=== PATIENT | male | born 1950 | race Caucasian/White ===

== ENCOUNTER → 2018-09-09 14:01 | Outpatient (CLI) | payer MEDICARE, OTHER, SELFPAY ==
--- NOTE | 2018-09-09 | DI.CT.S_ITS ---
PROCEDURE: CT ABDOMEN PELVIS WO/W CON INDICATIONS: Asymptomatic microscopic hematuria TECHNIQUE: Optional 5 mm thick noncontrast images acquired from the diaphragm to the symphysis pubis. After the administration of intravenous contrast, 5 mm thick images acquired from the diaphragm to the symphysis pubis after a 10-minute delay. 2 mm thick coronal and sagittal reformats were then performed of the kidneys and ureters. For radiation dose reduction, the following was used: automated exposure control, adjustment of mA and/or kV according to patient size. COMPARISON: None. FINDINGS: Image quality: Excellent. Lung bases: Lung bases are clear. Heart size is normal. Urinary system: Both kidneys are normal in size, without hydronephrosis or nephrolithiasis on pre-contrast images. No perinephric fat stranding. There is normal bilateral renal enhancement. Renal calyces appear normal in morphology when filled with contrast. Opacified portions of both ureters demonstrate normal caliber. Bladder wall thickness is normal. No calcified bladder stones. Other solid organs: Liver is normal in size and enhancement. Gallbladder appears normal. Biliary system is non dilated. Pancreas enhances normally. Spleen is normal in size and enhancement. No adrenal nodules. Peritoneum and bowel: Bowel loops demonstrate normal wall thickness and caliber. No free fluid or air. Nodes and vessels: No retroperitoneal or mesenteric adenopathy by size criteria. Aorta and inferior vena cava are normal in size. Abdominal wall: No ventral hernias. Pelvis: No pathologic free pelvic fluid. No inguinal hernias or adenopathy. Note is made of a 1.3 cm narrow neck right posterolateral bladder diverticulum showing no inflammation or associated mass. Bones: No suspicious bony lesions. No vertebral body compression fractures. IMPRESSION: No source of hematuria is not found. No hydronephrosis or nephrolithiasis is seen. There is no sign of urothelial or renal cortical mass. Note is made of a small right posterolateral bladder diverticulum measuring only 1.3 cm in maximal dimension, without associated inflammation or internal debris, or mass. Dictated by: Igor Booth M.D. on 09/09/2018 at 17:19 Approved by: Igor Booth M.D. on 09/09/2018 at 17:21
== END ==
PROVIDERS: PCP Family Medicine; Visit Provider Physician Assistant
DX: R31.21 Asymptomatic microscopic hematuria (principal); N32.3 Diverticulum of bladder
CPT/HCPCS: 74178

== ENCOUNTER 2019-08-17 11:02 | Emergency (ER) | payer MEDICARE, OTHER, SELFPAY ==
[2019-08-17] VITALS (16 sets, daily range): BP systolic 100–134; BP diastolic 52–61; PULSE 57–70; RESP 16–18; TEMP 36.4; O2SAT 96–100; BMI 38.7
--- NOTE | 2019-08-17 11:32 | ED.NAVMDI ---
HPI - Nausea/Vomiting/Diarrhea <Sarita Hyman PA-C - Last Filed: 08/17/19 20:12> General Chief complaint: Nausea/Vomiting/Diarrhea Stated complaint: nausea/vomiting hernia x7 days Time Seen by Provider: 08/17/19 11:05 Source: patient and family Mode of arrival: Ambulatory Limitations: no limitations History of Present Illness HPI Narrative: This is a 60-year-old gentleman with a history of DM type 2, CVA w/residual left-sided deficit, ureteroplasty 3 months ago, 4 cardiac stents, total knee arthroplasty, hypertension, hypothyroid who presents to the emergency department with his [place] [facility] who was concerned about the patient's recent nausea, vomiting and a possible hernia. The patient states that he has been having intermittent nausea for the past few weeks, he says it seems to happen at random but he also notes that he feels nauseous before eating even with the smell of food. He had 2 episodes of vomiting last night and in general has been eating less the last few days to weeks because of his nausea, he did not eat breakfast this morning but he did have a 3 bites of a BLT last night, and a 1/2 a cup f grits yesterday for breakfast. He says he thinks he has been experiencing reflux more recently and notes he has had this previously at times, he has taken tums for this a few times with limited relief. He states he also has been having intermittent back pain for over a month that is mid-low back, to the right of his spine, he describes it as sudden intense 10/10 pain that feels like it's going to takes me to my knees and then gradually resolves and happens multiple times per day; he states he has seen a chiropractor for this multiple times as well as his PCP. He also notes I'm past my expiration date so I have been more short of breath the last few months when I'm moving around. He says that he had a normal bowel movement this morning. He says he has had no recent changes to his medications. He notes that he has ?an abdominal hernia? that they were concerned about today when he was seen at the doctor's office. He says that he has had this for about 10 years and it started out small but it has ?been getting bigger he notes it is not painful and it is only present when he sits up and uses his abdominal muscles, saying ?I used to be small but now it looks like there is a giant alien in the middle of my belly. He states this has changed gradually, and has not suddenly worsened of late. Three weeks ago he had some intermittent diarrhea but this has resolved after about 5 days, other members of the [facility] had similar symptoms. Today he denies chest pain, back pain, abdominal pain, flank pain, fever, chills, diarrhea, dysuria, constipation or any other symptoms. MD complaint: nausea and vomiting Onset (ago): week(s) (nausea for 2 weeks, 2 episodes of vomiting last manuel) Description of Diarrhea: none Associated Abdominal Pain: Yes Location of pain: right flank Severity: mild Severity scale (1-10): 1 (a 10/10 when it's bad) Quality: sharp Pain Consistency: intermittent and now resolved Relieving factors: rest Exacerbating factors: none Associated symptoms: loss of appetite, nausea/vomiting and shortness of breath (with exertion for last few months) Related Data Home Medications Medication Instructions Recorded Confirmed ACETAMINOPHEN/DIPHENHYDRAMINE 1 cap PO PRN PRN #0 11/02/12 (Tylenol Pm Ex-Strength Gelcap) Fluoxetine Hydrochloride 20 mg PO QDAY #0 cap 11/02/12 (FLUOXETINE) atorvastatin [Lipitor] 80 mg PO HS #0 tab 11/02/12 insulin glargine [Lantus U-100 55 unit SQ HS #0 11/02/12 Insulin] metformin [Glucophage] 1,000 mg PO BIDCC #0 tab 11/02/12 carvedilol [Coreg] 25 mg PO BID #0 10/30/15 tamsulosin [Flomax] 0.4 mg PO QDAY #0 10/30/15 multivitamin [Multiple Vitamins] 1 tab PO QDAY #0 tab 11/08/15 Previous Rx's Medication Instructions Recorded aspirin 81 mg PO BID #60 tab 11/10/15 hydroxyzine pamoate [Vistaril] 25 mg PO Q4HP PRN #60 cap 11/10/15 oxycodone 5 mg PO Q4HP PRN #90 tab 11/10/15 omeprazole 20 mg PO DAILY #20 cap 08/17/19 ondansetron HCl [Zofran] 4 mg PO Q8H #20 tab 08/17/19 sulfamethoxazole-trimethoprim 1 tab PO BID #14 tab 08/17/19 [Bactrim DS] Allergies Allergy/AdvReac Type Severity Reaction Status Date / Time Penicillins [PENICILLINS] Allergy Unknown HYPERSENSITIVITY Verified 08/17/19 12:14 A CHILD/UNKNOWN Review of Systems <Sarita Hyman PA-C - Last Filed: 08/17/19 20:12> Review of Systems Narrative: GENERAL: Denies chills, fatigue, malaise, fever, sweats. HEENT: Denies sinus pain, ear pain, sore throat, difficulty swallowing, dizziness. RESPIRATORY: positive for exertional dyspnea over the last few months, negative for cough, wheezing, hemoptysis, sputum. CARDIOVASCULAR: Denies chest pain, palpitations, orthopnea, edema, GASTROINTESTINAL: Positive for 2 weeks of nausea, 2 episodes of vomiting last night, intermittent sharp abdominal (flank) pain, denies diarrhea, constipation, melena. : Denies dysuria, frequency, incontinence, hematuria, urinary retention, it has definitley been different since my ureteroplasty, but nothing has changed recently. MUSCULOSKELETAL: Positive for abdominal wall weakness hernia that is getting bigger in middle of belly denies weakness, joint pain, or bony pain SKIN: Denies rash, skin lesions, or other NEUROLOGIC: Denies weakness, headache, numbness, change in speech, confusion, seizures, incoordination. PSYCHIATRIC: No concerning psychosocial issues. 12 point review of systems is negative except for those stated above Patient History <Sarita Hyman PA-C - Last Filed: 08/17/19 20:12> Social History Smoking Status: Former smoker (quit 15 yrs ago) Smoking Status: Former smoker (quit 15 yrs ago) alcohol intake frequency: a few times a week Alcohol type: beer Substance Use Type: does not use Exam <Sarita Hyman PA-C - Last Filed: 08/17/19 20:12> Narrative Exam Narrative: GENERAL: well appearing 68 year old patient appears stated age. Well-nourished, obese patient, in mild distress. HEAD: Atraumatic. Normocephalic. EYES: Pupils equal round and reactive. Extraocular motions intact. No scleral icterus. No injection or drainage. ENT: Nose without bleeding, purulent drainage. Throat without erythema, tonsillar hypertrophy or exudate. Airway patent. NECK: Trachea midline. Non tender CARDIOVASCULAR: Distant heart tones, Regular rate and rhythm without murmurs, gallops, or rubs. RESPIRATORY: Clear to auscultation. Breath sounds equal bilaterally. No wheezes, rales, or rhonchi. GASTROINTESTINAL: Abdomen soft, protruberant, there is mild epigastric and RUQ tenderness, McBurney's point is nontender, Rovsing sign is negative, Mora sign is negative, there is a large rectus diastasis with flexion of the abdominal muscles, no abdominal hernia palpable, Abdomen nondistended. EXTREMITIES: No edema or joint tenderness, pedal pulses are bilaterally weak, difficult to palpate. BACK: Nontender midline and paraspinal without deformity or crepitance. There is flank tenderness on the right. NEURO: AOx3. SKIN: No rash or erythema of visible areas Initial Vital Signs Initial Vital Signs: Vital Signs Pulse Rate 70 08/17/19 11:24 Pulse Oximetry 97 08/17/19 11:24 <Griselda Benites DO - Last Filed: 08/22/19 07:12> Initial Vital Signs Initial Vital Signs: Vital Signs Pulse Rate 70 08/17/19 11:24 Pulse Oximetry 97 08/17/19 11:24 Scores <Sarita Hyman PA-C - Last Filed: 08/17/19 20:12> GCS [place] coma scale eye opening: Spontaneous [place] coma scale verbal response: Orientated [place] coma scale motor response: Obey commands [place] coma scale total score: 15 HEART Score Heart Score history: Slightly Suspicious Heart Score EKG: Normal Heart Score Age: > or = 65 years old Heart Score risk factors: 1-2 risk factors Heart Score troponin: < or = to normal limit Heart Score Total: 3 Course <Sarita Hyman PA-C - Last Filed: 08/17/19 20:12> Orders Ordered: Discontinued Medications Sodium Chloride (Normal Saline 0.9%) 1,000 mls @ 1,000 mls/hr IV BOLUS ONE Stop: 08/17/19 12:28 Last Infusion: 08/17/19 14:28 Dose: 0 mls/hr Documented by: Infusion: 08/17/19 13:14 Dose: 1,000 mls/hr Documented by: Admin: 08/17/19 11:37 Dose: 500 mls/hr Documented by: AMINATA Ondansetron HCl (Zofran) 4 mg IV NOW ONE Stop: 08/17/19 11:30 Last Admin: 08/17/19 11:37 Dose: 4 mg Documented by: AMINATA Vital Signs Vital signs: Vital Signs - 8 hr 08/17/19 12:30 08/17/19 13:00 08/17/19 13:14 Pulse Rate 61 59 L 58 L Respiratory Rate Blood Pressure 106/52 L Pulse Oximetry 98 99 99 08/17/19 13:20 08/17/19 13:22 08/17/19 13:30 Pulse Rate 59 L 63 Respiratory Rate 16 Blood Pressure 100/54 L Pulse Oximetry 96 98 08/17/19 13:40 08/17/19 14:00 08/17/19 14:21 Pulse Rate 58 L 57 L Respiratory Rate Blood Pressure 116/54 L 131/60 124/57 L Pulse Oximetry 100 99 08/17/19 14:30 08/17/19 14:40 Pulse Rate 57 L 60 Respiratory Rate Blood Pressure 122/58 L Pulse Oximetry 99 100 <Griselda Benites, - Last Filed: 08/22/19 07:12> Orders Ordered: Discontinued Medications Sodium Chloride (Normal Saline 0.9%) 1,000 mls @ 1,000 mls/hr IV BOLUS ONE Stop: 08/17/19 12:28 Last Infusion: 08/17/19 14:28 Dose: 0 mls/hr Documented by: Infusion: 08/17/19 13:14 Dose: 1,000 mls/hr Documented by: Admin: 08/17/19 11:37 Dose: 500 mls/hr Documented by: AMINATA Ondansetron HCl (Zofran) 4 mg IV NOW ONE Stop: 08/17/19 11:30 Last Admin: 08/17/19 11:37 Dose: 4 mg Documented by: AMINATA Vital Signs Vital signs: Vital Signs - 8 hr 08/17/19 12:30 08/17/19 13:00 08/17/19 13:14 Pulse Rate 61 59 L 58 L Respiratory Rate Blood Pressure 106/52 L Pulse Oximetry 98 99 99 08/17/19 13:20 08/17/19 13:22 08/17/19 13:30 Pulse Rate 59 L 63 Respiratory Rate 16 Blood Pressure 100/54 L Pulse Oximetry 96 98 08/17/19 13:40 08/17/19 14:00 08/17/19 14:21 Pulse Rate 58 L 57 L Respiratory Rate Blood Pressure 116/54 L 131/60 124/57 L Pulse Oximetry 100 99 08/17/19 14:30 08/17/19 14:40 Pulse Rate 57 L 60 Respiratory Rate Blood Pressure 122/58 L Pulse Oximetry 99 100 MDM - Nausea/Vomiting/Diarrhea <Sarita Hyman PA-C - Last Filed: 08/17/19 20:12> Differential Diagnosis Differential diagnosis: Likely gastroenteritis, dehydration and other (UTI, GERD, gastric ulcer, duodenal ulcer, biliary colic/dyskinesia, cholecystitis, ureterolithiasis, AAA, dka) Medical Records Attestation: I reviewed the patient's medical records. Medical records narrative: limited records available for review, reviewed records from for patient's ureteroplasty procedure. Lab Data Attestation: I reviewed the patient's lab results. Result diagrams: 08/17/19 11:23 08/17/19 11:23 Labs: Lab Results 08/17/19 08/17/19 08/17/19 Range/Units 11:23 11:23 11:23 WBC 5.6 (4.5-11.0) X10^3/uL RBC 3.68 L (4.5-5.9) X10^6/uL Hgb 11.9 L (13.5-17.5) g/dL Hct 34.3 L (41-53) % MCV 93.3 (80-100) fL MCH 32.2 (26-34) PG MCHC 34.6 (30-36) % RDW 12.6 (11.6-14.8) % Plt Count 227 (150-400) X10^3/uL Neut % (Auto) 65.3 (50-75) % Lymph % (Auto) 22.0 L (25-40) % [place] % (Auto) 10.2 (3-14) % Eos % (Auto) 1.4 L (2-4) % Baso % (Auto) 1.1 (0-2) % Neut # (Auto) 3600 (4171-7887) /uL Lymph # (Auto) 1200 (4901-2346) /uL [place] # (Auto) 600 (0-900) /uL Eos # (Auto) 100 (0-450) /uL Baso # (Auto) 100 (0-100) /uL Sodium 134 L (137-145) mmol/L Potassium 5.0 (3.4-5.1) mmol/L Chloride 100 (98-107) mmol/L Carbon Dioxide 24 (22-32) mmol/L BUN 31 H (9-20) mg/dL Creatinine 1.70 H (0.66-1.25) mg/dL Estimated GFR 40.3 L (>60) mL/min BUN/Creatinine Ratio 18.2 (6-22) Glucose 126 H (80-110) mg/dL Lactate (0.7-2.1) mmol/L Calcium 10.8 H (8.4-10.2) mg/dL Total Bilirubin 0.8 (0.2-1.3) mg/dL AST 30 (17-59) IU/L ALT 25 (<50) IU/L Alkaline Phosphatase 76 (38-126) U/L Troponin I < 0.012 (0.01-0.034) ng/mL NT-Pro-B Natriuret Pep 112 (<125) pg/mL Total Protein 7.0 (6.3-8.2) g/dL Albumin 4.3 (3.5-5.0) g/dL Globulin 2.7 (1.7-4.1) g/dL Albumin/Globulin Ratio 1.6 (1.0-2.8) Lipase 137 (23-300) U/L Urine RBC (0-5/HPF) Urine WBC (0-5/HPF) Ur Squamous Epith Cells (0-5/HPF) Amorphous Sediment Urine Bacteria (None) Hyaline Casts (None) Ur Culture Indicated? 08/17/19 08/17/19 08/17/19 Range/Units 11:23 12:45 13:48 WBC (4.5-11.0) X10^3/uL RBC (4.5-5.9) X10^6/uL Hgb (13.5-17.5) g/dL Hct (41-53) % MCV (80-100) fL MCH (26-34) PG MCHC (30-36) % RDW (11.6-14.8) % Plt Count (150-400) X10^3/uL Neut % (Auto) (50-75) % Lymph % (Auto) (25-40) % [place] % (Auto) (3-14) % Eos % (Auto) (2-4) % Baso % (Auto) (0-2) % Neut # (Auto) (7482-5756) /uL Lymph # (Auto) (8033-3109) /uL [place] # (Auto) (0-900) /uL Eos # (Auto) (0-450) /uL Baso # (Auto) (0-100) /uL Sodium (137-145) mmol/L Potassium (3.4-5.1) mmol/L Chloride (98-107) mmol/L Carbon Dioxide (22-32) mmol/L BUN (9-20) mg/dL Creatinine (0.66-1.25) mg/dL Estimated GFR (>60) mL/min BUN/Creatinine Ratio (6-22) Glucose (80-110) mg/dL Lactate 2.5 H 1.0 (0.7-2.1) mmol/L Calcium (8.4-10.2) mg/dL Total Bilirubin (0.2-1.3) mg/dL AST (17-59) IU/L ALT (<50) IU/L Alkaline Phosphatase (38-126) U/L Troponin I (0.01-0.034) ng/mL NT-Pro-B Natriuret Pep (<125) pg/mL Total Protein (6.3-8.2) g/dL Albumin (3.5-5.0) g/dL Globulin (1.7-4.1) g/dL Albumin/Globulin Ratio (1.0-2.8) Lipase (23-300) U/L Urine RBC 0-1/hpf (0-5/HPF) Urine WBC >100/hpf H (0-5/HPF) Ur Squamous Epith Cells 1-5 /hpf (0-5/HPF) Amorphous Sediment 1+ Urine Bacteria Many (>30) H (None) Hyaline Casts 5-10/lpf (None) Ur Culture Indicated? Specimen cultured Urine Dip Bedside Urine Glucose Negative Bedside Urine Bilirubin + 1 Bedside Urine Ketone +/- 5 Urine Specific [place] 1.020 Bedside Urine Occult Blood - Negative Bedside Urine pH 6.0 Bedside Urine Protein +/- 15 Bedside Urine Urobilinogen - Negative Bedside Urine Nitrite + Positive Bedside Urine Leukocytes +++ [address] scan - abdomen/pelvis: Attestation: I personally reviewed and interpreted this imaging study as follows: Radiologist's Impression: [address] [address] [address] Scan Report Signed Patient: Harsh Sprague LMR#: [id number] : [id number]:[id number] Age/Sex: 68 / MDate of Service: 08/17/19 Loc: ED Accession Number: [id number] Procedure: CT abdomen pelvis w con Ordering Provider: Sarita Hyman P.A-C PROCEDURE: CT ABDOMEN PELVIS W CON INDICATIONS: flank pain, N/V/anorexia TECHNIQUE: After the administration of intravenous contrast, 5 mm thick sections acquired from the diaphragm to the symphysis. 5 mm coronal and sagittal reformats were acquired. For radiation dose reduction, the following was used: automated exposure control, adjustment of mA and/or kV according to patient size. COMPARISON: [facility], CT, CT ABDOMEN PELVIS WO/W CON, 09/09/2018, 15:15. FINDINGS: Image quality: Excellent. ABDOMEN: Lung bases: Lung bases are clear. Heart size is normal. Solid organs: Liver is normal in size and enhancement. Gallbladder appears normal. Biliary system is non dilated. Pancreas enhances normally. Spleen is normal in size and enhancement. No adrenal nodules. Kidneys demonstrate normal size and enhancement, without hydronephrosis. Peritoneum and bowel: Bowel loops demonstrate normal wall thickness and caliber. No free fluid or air. Nodes and vessels: No retroperitoneal or mesenteric adenopathy by size criteria. Aorta and inferior vena cava are normal in size. Miscellaneous: No ventral hernias. PELVIS: Genitourinary: Bladder wall thickness is normal. The again noted is a small diverticulum just anterior to the distal right ureteral insertion on the bladder wall. This diverticulum does not impinge on the distal ureter itself. It appears mildly more prominent in size than on the comparison study from 09/09/18 measuring up to 1.1 x 1.7 cm. Miscellaneous: No inguinal hernias or adenopathy. There is a mid pelvis ovoid peripherally faintly calcified presumed lymph nodes that is unchanged from 09/09/18 currently seen on series 3 image 72 and previously seen on series 3 image 190. Bones: No suspicious bony lesions. No vertebral body compression fractures. IMPRESSION: A normal or abnormal appendix could not be located. No CT evidence of diverticulitis is found. Source of current right lower quadrant pain is not identified. A right posterolateral bladder wall small diverticulum has slightly enlarged in size now measuring up to 1.1 x 1.7 cm and does not impinge on the course of the distal right ureter. No inflammation is associated. Dictated by: Igor Booth M.D. on 08/17/2019 at 12:54 Approved by: Igor Booth M.D. on 08/17/2019 at 13:00 ECG Data Attestation: I personally reviewed and interpreted this ECG as follows: Prior ECG tracings: not available for review Interpretation: Sinus rhythm, rate of 65, CO interval 154 QRS 133 QT 401, P axis 55 R axis 43 T axis 48, right bundle-branch MDM Narrative Medical decision making narrative: This is a 68-year-old gentleman with a history of multiple cardiac stents, CVA with mild left-sided deficit, DM type 2, ureteroplasty, hypertension, hypothyroid presents complaining of 2 weeks of nausea, 2 episodes of vomiting last night, reduced appetite for 2 weeks and ongoing intermittent severe right flank pain, as well as concern for a possible abdominal hernia. 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 After a fluid bolus the lactate dropped significantly, and patient was discharged with outpatient antibiotics for a urinary tract infection/possible pyelo, advised to follow-up with his urologist. He is also provided a prescription for omeprazole and Zofran and referral to GI and advised to follow-up with his primary care physician. I suspect his symptoms are multifactorial, some of them related to his chronic reflux and GERD, possible gastric ulcer, and some of them related to his urinary tract infection. <Griselad Benites, DO - Last Filed: 08/22/19 07:12> Lab Data Labs: Lab Results 08/17/19 08/17/19 08/17/19 Range/Units 11:23 11:23 11:23 WBC 5.6 (4.5-11.0) X10^3/uL RBC 3.68 L (4.5-5.9) X10^6/uL Hgb 11.9 L (13.5-17.5) g/dL Hct 34.3 L (41-53) % MCV 93.3 (80-100) fL MCH 32.2 (26-34) PG MCHC 34.6 (30-36) % RDW 12.6 (11.6-14.8) % Plt Count 227 (150-400) X10^3/uL Neut % (Auto) 65.3 (50-75) % Lymph % (Auto) 22.0 L (25-40) % [place] % (Auto) 10.2 (3-14) % Eos % (Auto) 1.4 L (2-4) % Baso % (Auto) 1.1 (0-2) % Neut # (Auto) 3600 (5581-6808) /uL Lymph # (Auto) 1200 (9772-3278) /uL [place] # (Auto) 600 (0-900) /uL Eos # (Auto) 100 (0-450) /uL Baso # (Auto) 100 (0-100) /uL Sodium 134 L (137-145) mmol/L Potassium 5.0 (3.4-5.1) mmol/L Chloride 100 (98-107) mmol/L Carbon Dioxide 24 (22-32) mmol/L BUN 31 H (9-20) mg/dL Creatinine 1.70 H (0.66-1.25) mg/dL Estimated GFR 40.3 L (>60) mL/min BUN/Creatinine Ratio 18.2 (6-22) Glucose 126 H (80-110) mg/dL Lactate (0.7-2.1) mmol/L Calcium 10.8 H (8.4-10.2) mg/dL Total Bilirubin 0.8 (0.2-1.3) mg/dL AST 30 (17-59) IU/L ALT 25 (<50) IU/L Alkaline Phosphatase 76 (38-126) U/L Troponin I < 0.012 (0.01-0.034) ng/mL NT-Pro-B Natriuret Pep 112 (<125) pg/mL Total Protein 7.0 (6.3-8.2) g/dL Albumin 4.3 (3.5-5.0) g/dL Globulin 2.7 (1.7-4.1) g/dL Albumin/Globulin Ratio 1.6 (1.0-2.8) Lipase 137 (23-300) U/L Urine RBC (0-5/HPF) Urine WBC (0-5/HPF) Ur Squamous Epith Cells (0-5/HPF) Amorphous Sediment Urine Bacteria (None) Hyaline Casts (None) Ur Culture Indicated? 08/17/19 08/17/19 08/17/19 Range/Units 11:23 12:45 13:48 WBC (4.5-11.0) X10^3/uL RBC (4.5-5.9) X10^6/uL Hgb (13.5-17.5) g/dL Hct (41-53) % MCV (80-100) fL MCH (26-34) PG MCHC (30-36) % RDW (11.6-14.8) % Plt Count (150-400) X10^3/uL Neut % (Auto) (50-75) % Lymph % (Auto) (25-40) % [place] % (Auto) (3-14) % Eos % (Auto) (2-4) % Baso % (Auto) (0-2) % Neut # (Auto) (6872-5685) /uL Lymph # (Auto) (6081-7752) /uL [place] # (Auto) (0-900) /uL Eos # (Auto) (0-450) /uL Baso # (Auto) (0-100) /uL Sodium (137-145) mmol/L Potassium (3.4-5.1) mmol/L Chloride (98-107) mmol/L Carbon Dioxide (22-32) mmol/L BUN (9-20) mg/dL Creatinine (0.66-1.25) mg/dL Estimated GFR (>60) mL/min BUN/Creatinine Ratio (6-22) Glucose (80-110) mg/dL Lactate 2.5 H 1.0 (0.7-2.1) mmol/L Calcium (8.4-10.2) mg/dL Total Bilirubin (0.2-1.3) mg/dL AST (17-59) IU/L ALT (<50) IU/L Alkaline Phosphatase (38-126) U/L Troponin I (0.01-0.034) ng/mL NT-Pro-B Natriuret Pep (<125) pg/mL Total Protein (6.3-8.2) g/dL Albumin (3.5-5.0) g/dL Globulin (1.7-4.1) g/dL Albumin/Globulin Ratio (1.0-2.8) Lipase (23-300) U/L Urine RBC 0-1/hpf (0-5/HPF) Urine WBC >100/hpf H (0-5/HPF) Ur Squamous Epith Cells 1-5 /hpf (0-5/HPF) Amorphous Sediment 1+ Urine Bacteria Many (>30) H (None) Hyaline Casts 5-10/lpf (None) Ur Culture Indicated? Specimen cultured Urine Dip Bedside Urine Glucose Negative Bedside Urine Bilirubin + 1 Bedside Urine Ketone +/- 5 Urine Specific [place] 1.020 Bedside Urine Occult Blood - Negative Bedside Urine pH 6.0 Bedside Urine Protein +/- 15 Bedside Urine Urobilinogen - Negative Bedside Urine Nitrite + Positive Bedside Urine Leukocytes +++ 500 Esterase Discharge Plan Departure Patient Disposition: Home Clinical Impression: Bacterial UTI, Chronic flank pain, Chronic GERD Discharge Date/Time: 08/17/19 15:09 Activity Restrictions/Additional Instructions: Thank you for letting his be part of your care in the emergency department today. There is no evidence of an emergent or life threatening illness at this time, but follow up with your doctor in 1-2 days is recommended nonetheless to continue to rule out serious underlying causes of your symptoms. Please call the office for an appointment. Please return to the Emergency Department for any worsening or persistent symptoms. Please take medications as directed. You have evidence of a pretty significant urinary tract infection, please take the antibiotics prescribed (Bactrim) for this and pay close attention to your symptoms. If you do develop fever, chills, nausea, vomiting, blood in your urine increasing pain or any other symptoms of concern to you please do not hesitate to seek medical care. I also have referred you to a golf starter and ranger, and I am providing you with Zofran and omeprazole Zofran is an antinausea medicine and omeprazole as a medicine for acid and reflux. Please take these as prescribed and follow-up with your primary care physician in the next 2-5 days. I also recommend that you contact your urologist and advised them of your urinary tract infection and ensure that you have a follow-up appointment with them soon. Prescriptions: New omeprazole 20 mg capsule,delayed release(DR/EC) 20 mg PO DAILY Qty: 20 RF: 0 ondansetron HCl [Zofran] 4 mg tablet 4 mg PO Q8H Qty: 20 RF: 0 sulfamethoxazole-trimethoprim [Bactrim DS] 800-160 mg tablet 1 tab PO BID Qty: 14 RF: 0 No Action insulin glargine [Lantus U-100 Insulin] 100 UNIT/1 ML solution 55 unit SQ HS Qty: 0 RF: 0 atorvastatin [Lipitor] 40 MG tablet 80 mg PO HS Qty: 0 RF: 0 Fluoxetine Hydrochloride (FLUOXETINE) 20 mg PO QDAY Qty: 0 RF: 0 ACETAMINOPHEN/DIPHENHYDRAMINE (Tylenol Pm Ex-Strength Gelcap) 1 cap PO PRN PRNQty: 0 RF: 0 metformin [Glucophage] 500 MG tablet 1,000 mg PO BIDCC Qty: 0 RF: 0 carvedilol [Coreg] 25 MG tablet 25 mg PO BID Qty: 0 RF: 0 tamsulosin [Flomax] 0.4 MG capsule,extended release 24hr 0.4 mg PO QDAY Qty: 0 RF: 0 multivitamin [Multiple Vitamins] 1 EACH tablet 1 tab PO QDAY Qty: 0 RF: 0 aspirin 81 MG tablet,delayed release (DR/EC) 81 mg PO BID Qty: 60 RF: 1 oxycodone 5 MG tablet 5 mg PO Q4HP PRNQty: 90 RF: 0 hydroxyzine pamoate [Vistaril] 25 MG capsule 25 mg PO Q4HP PRNQty: 60 RF: 1 Referrals: Luther Cid MD [Non-Staff] - Jackeline Pacheco DO [Primary Care Provider] - <Griselda Benites DO - Last Filed: 08/22/19 07:12> Cosign ED Attending Darylature Attestation: I was immediately available in the department for consultation. Documentation has been reviewed. I agree with assessment and plan.
[2019-08-17] MEDS: ONDANSETRON 4 MG/2 ML INJ IV (11:37)
[2019-08-17] MEDS: SODIUM CHLORIDE 0.9% 1,000 ML 500 ML IV (11:37)
[2019-08-17 11:38] LABS: Add Manual Diff / Slide Review NO; Basophils Absolute Auto 100 /uL (0-100); Basophils Percent Auto 1.1 % (0-2); Eosinophils Absolute Auto 100 /uL (0-450); Eosinophils Percent Auto 1.4 % (2-4); Hematocrit 34.3 % (41-53); Hemoglobin 11.9 g/dL (13.5-17.5); Lymphocytes Absolute Auto 1200 /uL (1100-4500); Mean Corpuscular HGB Conc 34.6 % (30-36); Mean Corpuscular Hemoglobin 32.2 PG (26-34); Mean Corpuscular Volume 93.3 fL (80-100); Monocytes Absolute Auto 600 /uL (0-900); Monocytes Percent Auto 10.2 % (3-14); Neutrophils Absolute Auto 3600 /uL (1500-7000); Neutrophils Percent Auto 65.3 % (50-75); Platelet Count 227 X10^3/uL (150-400); Red Blood Cell Count 3.68 X10^6/uL (4.5-5.9); Red Cell Distribution Width 12.6 % (11.6-14.8); White Blood Cell Count 5.6 X10^3/uL (4.5-11.0)
[2019-08-17 11:46] LABS: Alanine Aminotransferase 25 IU/L (<50); Albumin 4.3 g/dL (3.5-5.0); Albumin Globulin Ratio 1.6 (1.0-2.8); Alkaline Phosphatase 76 U/L (38-126); Aspartate Aminotransferase 30 IU/L (17-59); BUN Creatinine Ratio 18.2 (6-22); Bilirubin Total 0.8 mg/dL (0.2-1.3); Blood Urea Nitrogen 31 mg/dL (9-20); Calcium 10.8 mg/dL (8.4-10.2); Carbon Dioxide 24 mmol/L (22-32); Chloride 100 mmol/L (98-107); Estimated Glomerular Filt Rate 40.3 mL/min (>60); Globulin 2.7 g/dL (1.7-4.1); Glucose 126 mg/dL (80-110); HEMOLYSIS < 15 (0-50); Lipase 137 U/L (23-300); Sodium 134 mmol/L (137-145)
[2019-08-17 11:47] LABS: Lactate (Lactic Acid) 2.5 mmol/L (0.7-2.1)
[2019-08-17 11:55] LABS: NT-proBNP (BNP-Adult 18+) 112 pg/mL (<125)
[2019-08-17 11:58] LABS: Troponin I < 0.012 ng/mL (0.01-0.034)
--- NOTE | 2019-08-17 11:58 | DI.CT.S_ITS ---
PROCEDURE: CT ABDOMEN PELVIS W CON INDICATIONS: flank pain, N/V/anorexia TECHNIQUE: After the administration of intravenous contrast, 5 mm thick sections acquired from the diaphragm to the symphysis. 5 mm coronal and sagittal reformats were acquired. For radiation dose reduction, the following was used: automated exposure control, adjustment of mA and/or kV according to patient size. COMPARISON: [facility], CT, CT ABDOMEN PELVIS WO/W CON, 09/09/2018, 15:15. FINDINGS: Image quality: Excellent. ABDOMEN: Lung bases: Lung bases are clear. Heart size is normal. Solid organs: Liver is normal in size and enhancement. Gallbladder appears normal. Biliary system is non dilated. Pancreas enhances normally. Spleen is normal in size and enhancement. No adrenal nodules. Kidneys demonstrate normal size and enhancement, without hydronephrosis. Peritoneum and bowel: Bowel loops demonstrate normal wall thickness and caliber. No free fluid or air. Nodes and vessels: No retroperitoneal or mesenteric adenopathy by size criteria. Aorta and inferior vena cava are normal in size. Miscellaneous: No ventral hernias. PELVIS: Genitourinary: Bladder wall thickness is normal. The again noted is a small diverticulum just anterior to the distal right ureteral insertion on the bladder wall. This diverticulum does not impinge on the distal ureter itself. It appears mildly more prominent in size than on the comparison study from 09/09/18 measuring up to 1.1 x 1.7 cm. Miscellaneous: No inguinal hernias or adenopathy. There is a mid pelvis ovoid peripherally faintly calcified presumed lymph nodes that is unchanged from 09/09/18 currently seen on series 3 image 72 and previously seen on series 3 image 190. Bones: No suspicious bony lesions. No vertebral body compression fractures. IMPRESSION: A normal or abnormal appendix could not be located. No CT evidence of diverticulitis is found. Source of current right lower quadrant pain is not identified. A right posterolateral bladder wall small diverticulum has slightly enlarged in size now measuring up to 1.1 x 1.7 cm and does not impinge on the course of the distal right ureter. No inflammation is associated. Dictated by: Igor Booth M.D. on 08/17/2019 at 12:54 Approved by: Igor Booth M.D. on 08/17/2019 at 13:00
[2019-08-17 13:18] LABS: RBC Urine 0-1/HPF (0-5/HPF); Squamous Epithelial Cell Urine 1-5 /HPF (0-5/HPF); WBC Urine >100/HPF (0-5/HPF)
[2019-08-17 13:19] LABS: Amorphous Sediment Urine 1+; Bacteria Urine Many (>30); Culture Indicated Urine Specimen Cultured; Hyaline Casts Urine 5-10/LPF
[2019-08-17 13:35] LABS: Reflexed Lactate in 2 Hours Y
== END 2019-08-17 15:09 | disposition home or self-care (01) ==
PROVIDERS: Emergency Provider Student in an Organized Health Care Education/Training Program; PCP Family Medicine
DX: N39.0 Urinary tract infection, site not specified (principal); R10.9 Unspecified abdominal pain; K21.9 Gastro-esophageal reflux disease without esophagitis; E11.9 Type 2 diabetes mellitus without complications; Z96.659 Presence of unspecified artificial knee joint; Z95.5 Presence of coronary angioplasty implant and graft; R11.2 Nausea with vomiting, unspecified; R19.7 Diarrhea, unspecified
CPT/HCPCS: 36415; 74177; 80053; 81003; 81015; 83605; 83690; 83880; 84484; 85025; 87077; 87086; 87186; 93005; 93010; 96361; 96374; 99284; J2405

== ENCOUNTER 2020-06-27 18:28 | Emergency (ER) | payer MEDICARE, OTHER, SELFPAY ==
[2020-06-27] VITALS (8 sets, daily range): BP systolic 116–161; BP diastolic 58–74; PULSE 67–74; RESP 12–25; TEMP 36.5; O2SAT 96–99; BMI 39.4
--- NOTE | 2020-06-27 18:35 | ED_ITS ---
HPI - General Adult General Chief complaint: Fall Stated complaint: GLF and Right rib pain Time Seen by Provider: 06/27/20 18:35 History of Present Illness HPI narrative: 69-year-old gentleman with a history of hyperlipidemia, coronary artery disease, diabetes prior strokes with gait instability presents after falling. The fall was unwitnessed and when medics were initially called to the scene he was described as having a GCS level of 12 with significant confusion. Over the course of transport to the emergency room he is improved and by the time of arrival in the emergency department has a GCS of 15 with some retrograde amnesia appreciated. Has complaints of right lower rib pain but can not give any additional history regarding the events surrounding his fall. He is quite gregarious, not answering direct questions and suspected to be moderately intoxicated. Related Data Home Medications Medication Instructions Recorded Confirmed ACETAMINOPHEN/DIPHENHYDRAMINE 1 cap PO PRN PRN #0 11/02/12 (Tylenol Pm Ex-Strength Gelcap) Fluoxetine Hydrochloride 20 mg PO QDAY #0 cap 11/02/12 06/27/20 (FLUOXETINE) atorvastatin [Lipitor] 80 mg PO HS #0 tab 11/02/12 06/27/20 insulin glargine [Lantus U-100 55 unit SQ HS #0 11/02/12 Insulin] metformin [Glucophage] 1,000 mg PO BIDCC #0 tab 11/02/12 carvedilol [Coreg] 25 mg PO BID #0 10/30/15 06/27/20 tamsulosin [Flomax] 0.4 mg PO QDAY #0 10/30/15 06/27/20 multivitamin [Multiple Vitamins] 1 tab PO QDAY #0 tab 11/08/15 empagliflozin [Jardiance] 10 mg PO QAM 06/27/20 06/27/20 levothyroxine [Synthroid] 50 mcg PO DAILY 06/27/20 06/27/20 lisinopril 20 mg PO DAILY 06/27/20 06/27/20 spironolactone 25 mg PO DAILY 06/27/20 06/27/20 Previous Rx's Medication Instructions Recorded aspirin 81 mg PO BID #60 tab 11/10/15 hydroxyzine pamoate [Vistaril] 25 mg PO Q4HP PRN #60 cap 11/10/15 oxycodone 5 mg PO Q4HP PRN #90 tab 11/10/15 omeprazole 20 mg PO DAILY #20 cap 08/17/19 ondansetron HCl [Zofran] 4 mg PO Q8H #20 tab 08/17/19 sulfamethoxazole-trimethoprim 1 tab PO BID #14 tab 08/17/19 [Bactrim DS] oxycodone-acetaminophen 1 tab PO Q6H PRN 5 Days #15 tab 06/28/20 Allergies Allergy/AdvReac Type Severity Reaction Status Date / Time Penicillins [PENICILLINS] Allergy Unknown HYPERSENSITIVITY Verified 06/27/20 18:40 A CHILD/UNKNOWN Review of Systems Review of Systems ROS Unobtainable: Unobtainable due to mental status/LOC Patient History Medical History Diabetes Hyperlipidemia Hypertension Stroke Surgical History S/P total knee arthroplasty Social History Smoking Status: Former smoker (quit 15 yrs ago) Smoking Status: Former smoker (quit 15 yrs ago) alcohol intake frequency: a few times a week Alcohol type: beer Substance Use Type: does not use Exam Narrative Exam Narrative: General: Healthy appearing, gregarious to the point of confabulation and inability to describe events prior to arrival. Well-nourished well-developed HEENT: Moist mucous membranes, normal sclera with reactive pupils, atraumatic with no contusions abrasions or hematomas Neck: No JVD, supple Respiratory: Lungs are clear to auscultation, no wheezing no rales no rhonchi. Full and symmetrical air movement Chest: Tenderness along the costal margin right side without abrasions or contusions appreciated. No tenderness along the thoracic or lumbar spine Cardiac: Regular rate and rhythm no murmurs no bruits Abdomen: Soft, nontender, good bowel tones, no flank pain Skin: Warm and dry, no rashes Neurologic: Grossly neurologically intact with no obvious asymmetries or abnormalities Extremities: No trauma, well perfused Psych: Retrograde amnesia with poor overall insight Initial Vital Signs Initial Vital Signs: Vital Signs Temperature 97.7 F 06/27/20 18:07 Pulse Rate 67 06/27/20 18:07 Respiratory Rate 20 06/27/20 18:07 Blood Pressure 135/65 06/27/20 18:07 Pulse Oximetry 96 06/27/20 18:07 Course Orders Ordered: Discontinued Medications Ketorolac Tromethamine (Ketorolac 30 Mg/Ml Vial) 15 mg IV NOW ONE Stop: 06/27/20 23:11 Last Admin: 06/27/20 23:22 Dose: 15 mg Documented by: [place] Oxycodone/Acetaminophen (Oxycodone/Acetaminophen 5/325 Tablet) 1 tab PO NOW ONE Stop: 06/28/20 00:04 Last Admin: 06/28/20 00:09 Dose: 1 tab Documented by: [place] Oxycodone/Acetaminophen (Oxycodone/Apap 5/325 Prepack) 1 bottle MISC SEEINSTR ONE Stop: 06/28/20 00:04 Last Admin: 06/28/20 00:10 Dose: 1 bottle Documented by: [place] Vital Signs Vital signs: Vital Signs - 8 hr 06/27/20 23:00 06/27/20 23:30 06/28/20 00:00 Pulse Rate 71 72 68 Respiratory Rate 18 20 16 Blood Pressure 116/62 133/60 126/60 Pulse Oximetry 97 97 96 06/28/20 00:47 Pulse Rate 75 Respiratory Rate 18 Blood Pressure 132/59 L Pulse Oximetry 98 Medical Decision Making Medical Records Medical records reviewed: Yes I reviewed the patient's medical records. Lab Data Lab results reviewed: Yes I reviewed the patient's lab results. Result diagrams: 06/27/20 18:50 06/27/20 18:50 Labs: Lab Results 06/27/20 06/27/20 06/27/20 Range/Units 18:50 18:50 18:50 WBC 5.5 (4.5-11.0) X10^3/uL RBC 4.41 L (4.5-5.9) X10^6/uL Hgb 14.0 (13.5-17.5) g/dL Hct 41.7 (41-53) % MCV 94.5 (80-100) fL MCH 31.8 (26-34) PG MCHC 33.6 (30-36) % RDW 12.8 (11.6-14.8) % Plt Count 178 (150-400) X10^3/uL Neut % (Auto) 64.8 (50-75) % Lymph % (Auto) 23.4 L (25-40) % Giles % (Auto) 8.8 (3-14) % Eos % (Auto) 1.9 L (2-4) % Baso % (Auto) 1.1 (0-2) % Neut # (Auto) 3500 (9048-3494) /uL Lymph # (Auto) 1300 (6643-1356) /uL Giles # (Auto) 500 (0-900) /uL Eos # (Auto) 100 (0-450) /uL Baso # (Auto) 100 (0-100) /uL Sodium 138 (137-145) mmol/L Potassium 4.3 (3.4-5.1) mmol/L Chloride 100 (98-107) mmol/L Carbon Dioxide 24 (22-32) mmol/L BUN 26 H (9-20) mg/dL Creatinine 1.42 H (0.66-1.25) mg/dL Estimated GFR 49.4 L (>60) mL/min BUN/Creatinine Ratio 18.3 (6-22) Glucose 128 H (80-110) mg/dL Calcium 9.6 (8.4-10.2) mg/dL Magnesium 2.2 (1.6-2.3) mg/dL Total Bilirubin 0.3 (0.2-1.3) mg/dL AST 30 (17-59) IU/L ALT 28 (<50) IU/L Alkaline Phosphatase 82 (38-126) U/L Troponin I < 0.012 (0.01-0.034) ng/mL NT-Pro-B Natriuret Pep 113 (<125) pg/mL Total Protein 7.2 (6.3-8.2) g/dL Albumin 4.7 (3.5-5.0) g/dL Globulin 2.5 (1.7-4.1) g/dL Albumin/Globulin Ratio 1.9 (1.0-2.8) Lipase 242 (23-300) U/L Urine Color Urine Appearance Urine pH (4.5-8.0) Ur Specific [place] (1.000-1.035) Urine Protein (Negative) Urine Glucose (UA) (Negative) g/dL Urine Ketones (NEGATIVE) Urine Occult Blood (Negative) Urine Nitrate (Negative) Urine Bilirubin (NEGATIVE) Urine Urobilinogen (0.2) E.U./dL Ur Leukocyte Esterase (NEGATIVE) Urine RBC (0-5/HPF) Urine WBC (0-5/HPF) Ur Squamous Epith Cells (0-5/HPF) Urine Bacteria (None) Ur Culture Indicated? Ethyl Alcohol 160 H ( - 10) mg/dL 06/27/20 Range/Units 19:48 WBC (4.5-11.0) X10^3/uL RBC (4.5-5.9) X10^6/uL Hgb (13.5-17.5) g/dL Hct (41-53) % MCV (80-100) fL MCH (26-34) PG MCHC (30-36) % RDW (11.6-14.8) % Plt Count (150-400) X10^3/uL Neut % (Auto) (50-75) % Lymph % (Auto) (25-40) % Giles % (Auto) (3-14) % Eos % (Auto) (2-4) % Baso % (Auto) (0-2) % Neut # (Auto) (4611-6662) /uL Lymph # (Auto) (2469-4657) /uL Giles # (Auto) (0-900) /uL Eos # (Auto) (0-450) /uL Baso # (Auto) (0-100) /uL Sodium (137-145) mmol/L Potassium (3.4-5.1) mmol/L Chloride (98-107) mmol/L Carbon Dioxide (22-32) mmol/L BUN (9-20) mg/dL Creatinine (0.66-1.25) mg/dL Estimated GFR (>60) mL/min BUN/Creatinine Ratio (6-22) Glucose (80-110) mg/dL Calcium (8.4-10.2) mg/dL Magnesium (1.6-2.3) mg/dL Total Bilirubin (0.2-1.3) mg/dL AST (17-59) IU/L ALT (<50) IU/L Alkaline Phosphatase (38-126) U/L Troponin I (0.01-0.034) ng/mL NT-Pro-B Natriuret Pep (<125) pg/mL Total Protein (6.3-8.2) g/dL Albumin (3.5-5.0) g/dL Globulin (1.7-4.1) g/dL Albumin/Globulin Ratio (1.0-2.8) Lipase (23-300) U/L Urine Color Yellow Urine Appearance Clear Urine pH 5.5 (4.5-8.0) Ur Specific [place] <=1.005 (1.000-1.035) Urine Protein Negative (Negative) Urine Glucose (UA) 2+ H (Negative) g/dL Urine Ketones Trace H (NEGATIVE) Urine Occult Blood Negative (Negative) Urine Nitrate Negative (Negative) Urine Bilirubin Negative (NEGATIVE) Urine Urobilinogen 0.2 (0.2) E.U./dL Ur Leukocyte Esterase Negative (NEGATIVE) Urine RBC None seen (0-5/HPF) Urine WBC 0-1/hpf (0-5/HPF) Ur Squamous Epith Cells 0-1 /hpf (0-5/HPF) Urine Bacteria None seen (None) Ur Culture Indicated? Cult not indicated Ethyl Alcohol ( - 10) mg/dL Imaging Data CT scans head, cervical spine, chest abdomen pelvis: Radiologist's Impression: FINDINGS: Image quality: Excellent. CSF spaces: Basal cisterns are patent. No extra-axial fluid collections. The ventricles are symmetric in size and shape. Brain: No intracranial bleeds or masses. There is cerebral volume loss for age, with resultant ventricular and sulcal prominence. There are zicb-pw-fzexexif periventricular and deep white matter chronic small vessel ischemic changes. There is intracranial internal carotid artery and vertebral artery atherosclerosis. Skull and face: Calvarium and visualized facial bones appear intact, without suspicious lesions. Sinuses: Visualized sinuses and mastoids are clear. IMPRESSION: 1. Age related volume loss and afmn-qy-xwlwlobe small vessel ischemic change. 2. No evidence acute stroke, hemorrhage, or mass. 3. No evidence of significant intracranial sequelae of acute trauma. Dictated by: Julius Degroot M.D. on 06/27/2020 at 19:20 FINDINGS: Image quality: Excellent. Bones: No fractures or dislocations. Visualized superior ribs are intact. Moderate to severe cervical spondylitic change. Multilevel facet arthropathy. Soft tissues: Prevertebral soft tissues are normal in thickness. No paravertebral hematomas. No apical pneumothoraces. IMPRESSION: 1. Cervical spondylitic change. 2. No evidence of acute cervical fracture or dislocation. Dictated by: Julius Degroot M.D. on 06/27/2020 at 19:22 FINDINGS: Image quality: Excellent. CHEST: Lungs: No pulmonary contusions or lacerations. No acute airspace opacities. No pneumothorax or hemothorax. Central and peripheral airways appear patent and normal in caliber. Mediastinum: No mediastinal hematomas. Heart size is normal. No pericardial effusion. Moderately severe coronary artery calcifications. Thoracic aorta and pulmonary arteries demonstrate normal size and enhancement. No mediastinal or hilar adenopathy. Esophagus is normal in caliber. No hiatal hernia. Chest wall: Mildly displaced subacute right T11 fracture. Subacute healing right T10 fracture. No acute fractures identified. No subcutaneous emphysema. No axillary or supraclavicular adenopathy. Thyroid gland is unremarkable as visualized. ABDOMEN: Solid organs: Liver is normal in size and enhancement, without lacerations. Gallbladder is unremarkable. Biliary system is non-dilated. Pancreas enhances normally, without transection. Spleen is normal in size and enhancement, without lacerations. No adrenal hematomas. Both kidneys enhance normally, without hydronephrosis or lac erations. Peritoneum and bowel: No free fluid or air. Unenhanced bowel loops demonstrate normal wall thickness and caliber. Nodes and vessels: No retroperitoneal or mesenteric adenopathy. Aorta and inferior vena cava are normal in size and enhancement. Aorto bi iliac atherosclerotic calci fications. Miscellaneous: No ventral hernias. PELVIS: Genitourinary: Bladder wall thickness is normal. Right base of bladder diverticulum. Miscellaneous: Bilateral fat containing inguinal hernias. No inguinal adenopathy. Bones: Pelvic ring and hip joints appear intact. No vertebral compression fractures. Total right hip arthroplasty. IMPRESSION: 1. Subacute right T10 and T11 for rib fractures. 2. No evidence of significant sequelae of acute trauma in the chest, abdomen, and pelvis. 3. Moderately severe coronary artery calcifications. 4. Diffuse aortic and iliac atherosclerotic calcifications. Dictated by: Julius Degroot M.D. on 06/27/2020 at 19:25 ECG Data Attestation: I personally reviewed and interpreted this ECG as follows: Interpretation: Rate of 64, sinus rhythm Right bundle branch block with no acute ischemic changes MDM Narrative Medical decision making narrative: Emergency Medicine: Utilization of CT for Minor Blunt Head Trauma (Adult) Patient is 18 or older, presenting with minor blunt head trauma. Head CT was ordered by an emergency manager care management for trauma because Reasons: Patient is 65 or older Patient GCS < 15, initial GCS =12 with retrograde amnesia 69-year-old gentleman with unwitnessed fall with loss of consciousness uncertain reason for fall and initial GCS of 12 with continued retrograde amnesia that does continue to be improving. Standby trauma was called. Because of his intoxication in unclear events surrounding his fall CT scan of the head C-spine chest abdomen and pelvis are undertaken. He is noted to have to anterior rib fractures on the right, 10 and 11. There is no hemopneumothorax or other skeletal anomalies appreciated. No intra-abdominal pathology. No evidence of acute stroke, acute coronary syndrome or significant electrolyte abnormalities. Alcohol level is elevated 160. As he oxana through his ER visit he is much more appropriate and is beginning to notice pain from the right rib fractures. When questioned about his drinking he and his note that he drinks occasionally when he does drink it typically is too excess. We talked about appropriate pain control for the rib fractures as well as anticipated course of resolution. Discussed the inappropriate combination of alcohol with any type of pain medications. This point most likely explanation is on intoxication with gait instability exacerbated by prior stroke fall with loss of consciousness and retrograde amnesia without evidence of intracranial hemorrhage and rib fractures as his only additional injury from said fall. He is safe for home discharge at this time Discharge Plan Departure Patient Disposition: Home Clinical Impression: Concussion with loss of consciousness Qualifiers: Encounter type: initial encounter Qualified Code(s): S06.0X9A - Concussion with loss of consciousness of unspecified duration, initial encounter Fall Qualifiers: Encounter type: initial encounter Qualified Code(s): W19.XXXA - Unspecified fall, initial encounter Alcohol intoxication Qualifiers: Complication of substance-induced condition: uncomplicated Qualified Code(s): F10.920 - Alcohol use, unspecified with intoxication, uncomplicated Fracture, ribs Qualifiers: Encounter type: initial encounter Fracture type: closed Laterality: right Qualified Code(s): S22.41XA - Multiple fractures of ribs, right side, initial encounter for closed fracture Instructions: DI for Concussion, DI for Rib Fracture Activity Restrictions/Additional Instructions: Thank you for coming in today You were slightly intoxicated and this obviously contributed to your already unsteady gait. With your fall you broke 2 ribs on the right side. These will likely hurt more tomorrow and rib fractures typically take 6 weeks to heal. For mild pain, please use 2 Tylenol. For moderate pain 1 ibuprofen and 1 Tylenol. For significant pain 1 ibuprofen and 1 Percocet (which has Tylenol plus oxycodone) if you are using Percocet, your risk for falling does increase so please consider using her cane. It can also cause constipation. You did hit your head hard enough to have a concussion however you do not have any bleeding inside your brain and there is no evidence of infection or stroke. It is not uncommon to feel a little ?off? have headaches and nausea after you hit her head this hard We looked for any other trauma and your cervical spine as well as your chest and abdomen all clear nicely. If you have worsening symptoms or problems, please return to the emergency department Prescriptions: New oxycodone-acetaminophen 5-325 mg tablet 1 tab PO Q6H PRN (Reason: pain) 5 Days Qty: 15 RF: 0 No Action insulin glargine [Lantus U-100 Insulin] 100 UNIT/1 ML solution 55 unit SQ HS Qty: 0 RF: 0 atorvastatin [Lipitor] 40 MG tablet 80 mg PO HS Qty: 0 RF: 0 Fluoxetine Hydrochloride (FLUOXETINE) 20 mg PO QDAY Qty: 0 RF: 0 ACETAMINOPHEN/DIPHENHYDRAMINE (Tylenol Pm Ex-Strength Gelcap) 1 cap PO PRN PRNQty: 0 RF: 0 metformin [Glucophage] 500 MG tablet 1,000 mg PO BIDCC Qty: 0 RF: 0 carvedilol [Coreg] 25 MG tablet 25 mg PO BID Qty: 0 RF: 0 tamsulosin [Flomax] 0.4 MG capsule,extended release 24hr 0.4 mg PO QDAY Qty: 0 RF: 0 multivitamin [Multiple Vitamins] 1 EACH tablet 1 tab PO QDAY Qty: 0 RF: 0 aspirin 81 MG tablet,delayed release (DR/EC) 81 mg PO BID Qty: 60 RF: 1 oxycodone 5 MG tablet 5 mg PO Q4HP PRNQty: 90 RF: 0 hydroxyzine pamoate [Vistaril] 25 MG capsule 25 mg PO Q4HP PRNQty: 60 RF: 1 lisinopril 20 mg Tablet 20 mg PO DAILY RF: 0 spironolactone 25 mg Tablet 25 mg PO DAILY RF: 0 levothyroxine [Synthroid] 50 mcg Tablet 50 mcg PO DAILY RF: 0 Jardiance 10 mg Tablet 10 mg PO QAM RF: 0 omeprazole 20 mg capsule,delayed release(DR/EC) 20 mg PO DAILY Qty: 20 RF: 0 ondansetron HCl [Zofran] 4 mg tablet 4 mg PO Q8H Qty: 20 RF: 0 sulfamethoxazole-trimethoprim [Bactrim DS] 800-160 mg tablet 1 tab PO BID Qty: 14 RF: 0 Referrals: Jackeline Pacheco DO [Primary Care Provider] -
--- NOTE | 2020-06-27 18:36 | DI.CT.S_ITS ---
PROCEDURE: CT HEAD/BRAIN WO CON INDICATIONS: trauma, retrograde amnesia TECHNIQUE: Noncontrast 4.5 mm thick angled axial sections acquired from the foramen magnum to the vertex, with coronal and sagittal reformats. For radiation dose reduction, the following was used: automated exposure control, adjustment of mA and/or kV according to patient size. COMPARISON: None. FINDINGS: Image quality: Excellent. CSF spaces: Basal cisterns are patent. No extra-axial fluid collections. The ventricles are symmetric in size and shape. Brain: No intracranial bleeds or masses. There is cerebral volume loss for age, with resultant ventricular and sulcal prominence. There are lnrg-[id number]-gzimnnxr periventricular and deep white matter chronic small vessel ischemic changes. There is intracranial internal carotid artery and vertebral artery atherosclerosis. Skull and face: Calvarium and visualized facial bones appear intact, without suspicious lesions. Sinuses: Visualized sinuses and mastoids are clear. IMPRESSION: 1. Age related volume loss and oooh-hw-shsfeyjh small vessel ischemic change. 2. No evidence acute stroke, hemorrhage, or mass. 3. No evidence of significant intracranial sequelae of acute trauma. Dictated by: Julius Degroot M.D. on 06/27/2020 at 19:20 Approved by: Julius Degroot M.D. on 06/27/2020 at 19:21
--- NOTE | 2020-06-27 18:37 | DI.CT.S_ITS ---
PROCEDURE: CT CHEST ABD PEL W CON INDICATIONS: trauma, right rib pain, +LOC, details unclear TECHNIQUE: After the administration of intravenous contrast, 5 mm thick sections acquired from the lung apices to the symphysis. 2.5 mm thick coronal and sagittal reformats were acquired. Additional 7 mm thick coronal maximum intensity projection (MIP) reformats acquired through the lungs. Optional 10-minute delayed imaging may be performed from the kidneys to the bladder. For radiation dose reduction, the following was used: automated exposure control, adjustment of mA and/or kV according to patient size. COMPARISON: [facility], CT, CT CERVICAL SPINE WO CON, 06/27/2020, 19:01. FINDINGS: Image quality: Excellent. CHEST: Lungs: No pulmonary contusions or lacerations. No acute airspace opacities. No pneumothorax or hemothorax. Central and peripheral airways appear patent and normal in caliber. Mediastinum: No mediastinal hematomas. Heart size is normal. No pericardial effusion. Moderately severe coronary artery calcifications. Thoracic aorta and pulmonary arteries demonstrate normal size and enhancement. No mediastinal or hilar adenopathy. Esophagus is normal in caliber. No hiatal hernia. Chest wall: Mildly displaced subacute right T11 fracture. Subacute healing right T10 fracture. No acute fractures identified. No subcutaneous emphysema. No axillary or supraclavicular adenopathy. Thyroid gland is unremarkable as visualized. ABDOMEN: Solid organs: Liver is normal in size and enhancement, without lacerations. Gallbladder is unremarkable. Biliary system is non-dilated. Pancreas enhances normally, without transection. Spleen is normal in size and enhancement, without lacerations. No adrenal hematomas. Both kidneys enhance normally, without hydronephrosis or lacerations. Peritoneum and bowel: No free fluid or air. Unenhanced bowel loops demonstrate normal wall thickness and caliber. Nodes and vessels: No retroperitoneal or mesenteric adenopathy. Aorta and inferior vena cava are normal in size and enhancement. Aorto bi iliac atherosclerotic calcifications. Miscellaneous: No ventral hernias. PELVIS: Genitourinary: Bladder wall thickness is normal. Right base of bladder diverticulum. Miscellaneous: Bilateral fat containing inguinal hernias. No inguinal adenopathy. Bones: Pelvic ring and hip joints appear intact. No vertebral compression fractures. Total right hip arthroplasty. IMPRESSION: 1. Subacute right T10 and T11 for rib fractures. 2. No evidence of significant sequelae of acute trauma in the chest, abdomen, and pelvis. 3. Moderately severe coronary artery calcifications. 4. Diffuse aortic and iliac atherosclerotic calcifications. Dictated by: Julius Degroot M.D. on 06/27/2020 at 19:25 Approved by: Julius Degroot M.D. on 06/27/2020 at 19:32
--- NOTE | 2020-06-27 18:39 | DI.CT.S_ITS ---
PROCEDURE: CT CERVICAL SPINE WO CON INDICATIONS: fall, intoxicated TECHNIQUE: Noncontrast 3 mm thick sections acquired from the skull base to the T4 level. Sagittal and coronal reformats were then constructed. For radiation dose reduction, the following was used: automated exposure control, adjustment of mA and/or kV according to patient size. COMPARISON: None. FINDINGS: Image quality: Excellent. Bones: No fractures or dislocations. Visualized superior ribs are intact. Moderate to severe cervical spondylitic change. Multilevel facet arthropathy. Soft tissues: Prevertebral soft tissues are normal in thickness. No paravertebral hematomas. No apical pneumothoraces. IMPRESSION: 1. Cervical spondylitic change. 2. No evidence of acute cervical fracture or dislocation. Dictated by: Julius Degroot M.D. on 06/27/2020 at 19:22 Approved by: Julius Degroot M.D. on 06/27/2020 at 19:25
--- NOTE | 2020-06-27 18:57 | PC.NURSE ---
Soft collar placed as pt would not tolerate hard collar. Pt arrives A/O, GCS 15. at bedside.
[2020-06-27 19:06] LABS: Add Manual Diff / Slide Review NO; Basophils Absolute Auto 100 /uL (0-100); Basophils Percent Auto 1.1 % (0-2); Eosinophils Absolute Auto 100 /uL (0-450); Eosinophils Percent Auto 1.9 % (2-4); Hematocrit 41.7 % (41-53); Lymphocytes Absolute Auto 1300 /uL (1100-4500); Lymphocytes Percent Auto 23.4 % (25-40); Mean Corpuscular HGB Conc 33.6 % (30-36); Mean Corpuscular Hemoglobin 31.8 PG (26-34); Mean Corpuscular Volume 94.5 fL (80-100); Monocytes Absolute Auto 500 /uL (0-900); Monocytes Percent Auto 8.8 % (3-14); Neutrophils Absolute Auto 3500 /uL (1500-7000); Neutrophils Percent Auto 64.8 % (50-75); Platelet Count 178 X10^3/uL (150-400); Red Blood Cell Count 4.41 X10^6/uL (4.5-5.9); Red Cell Distribution Width 12.8 % (11.6-14.8); White Blood Cell Count 5.5 X10^3/uL (4.5-11.0)
[2020-06-27 19:45] LABS: Alanine Aminotransferase 28 IU/L (<50); Albumin 4.7 g/dL (3.5-5.0); Albumin Globulin Ratio 1.9 (1.0-2.8); Alkaline Phosphatase 82 U/L (38-126); Aspartate Aminotransferase 30 IU/L (17-59); BUN Creatinine Ratio 18.3 (6-22); Bilirubin Total 0.3 mg/dL (0.2-1.3); Blood Urea Nitrogen 26 mg/dL (9-20); Calcium 9.6 mg/dL (8.4-10.2); Carbon Dioxide 24 mmol/L (22-32); Chloride 100 mmol/L (98-107); Estimated Glomerular Filt Rate 49.4 mL/min (>60); Globulin 2.5 g/dL (1.7-4.1); Glucose 128 mg/dL (80-110); HEMOLYSIS < 15 (0-50); Lipase 242 U/L (23-300); Magnesium 2.2 mg/dL (1.6-2.3); Potassium 4.3 mmol/L (3.4-5.1); Sodium 138 mmol/L (137-145); Total Protein 7.2 g/dL (6.3-8.2)
[2020-06-27 19:51] LABS: Bacteria Urine None Seen; RBC Urine None Seen (0-5/HPF)
[2020-06-27 19:56] LABS: NT-proBNP (BNP-Adult 18+) 113 pg/mL (<125); Troponin I < 0.012 ng/mL (0.01-0.034)
[2020-06-27 19:56] LABS: Appearance Urine UA CLEAR; Bilirubin Urine UA NEGATIVE (NEGATIVE); Color Urine UA YELLOW; Glucose Urine UA 2+ g/dL (Negative); Ketones Urine UA TRACE (NEGATIVE); Leukocyte Esterase Urine UA NEGATIVE (NEGATIVE); Nitrite Urine UA NEGATIVE (Negative); Occult Blood Urine UA NEGATIVE (Negative); Protein Urine UA NEGATIVE (Negative); Specific Gravity Urine UA <=1.005 (1.000-1.035); Urobilinogen Urine UA 0.2 E.U./dL (0.2); pH Urine UA 5.5 (4.5-8.0)
[2020-06-27 20:15] LABS: Culture Indicated Urine Cult Not Indicated; Squamous Epithelial Cell Urine 0-1 /HPF (0-5/HPF); WBC Urine 0-1/HPF (0-5/HPF)
[2020-06-27 21:12] LABS: Ethanol (ETOH) 160 mg/dL
[2020-06-27] MEDS: ONDANSETRON 4 MG/2 ML INJ (22:21)
[2020-06-27] MEDS: KETOROLAC 30 MG/ML VIAL 15 MG IV (23:22)
[2020-06-28] VITALS: BP 126/60; PULSE 68; RESP 16; O2SAT 96
[2020-06-28] MEDS: OXYCODONE/ACETAMINOPHEN 5/325 TABLET 1 TAB PO (00:09)
[2020-06-28] MEDS: OXYCODONE/APAP 5/325 PREPACK 1 BOTTLE MISC (00:10)
[2020-06-28 00:47] VITALS: BP 132/59; PULSE 75; RESP 18; O2SAT 98
== END 2020-06-28 00:40 | disposition home or self-care (01) ==
PROVIDERS: Emergency Provider Emergency Medicine; PCP Family Medicine
DX: S06.0X9A Concussion with loss of consciousness of unspecified duration, initial encounter (principal); F10.920 Alcohol use, unspecified with intoxication, uncomplicated; S22.41XA Multiple fractures of ribs, right side, initial encounter for closed fracture; R41.2 Retrograde amnesia; W19.XXXA Unspecified fall, initial encounter
CPT/HCPCS: 36415; 70450; 71260; 72125; 74177; 80053; 80320; 81001; 83690; 83735; 83880; 84484; 85025; 93005; 93010; 96374; 96375; 99285; J1885; J2405

== ENCOUNTER → 2021-06-08 09:14 | Outpatient (CLI) | payer MEDICARE, OTHER, SELFPAY ==
[2021-06-08 11:38] LABS: COVID19 -Nasal RAPID Negative (Negative)
== END ==
PROVIDERS: PCP Family Medicine; Visit Provider Family Medicine Sleep Medicine
DX: Z20.822 Contact with and (suspected) exposure to COVID-19 (principal)
CPT/HCPCS: 87635; C9803

== ENCOUNTER → 2021-06-11 10:29 | Outpatient (CLI) | payer MEDICARE, OTHER, SELFPAY ==
--- NOTE | 2021-06-11 | DI.NM.S_ITS ---
PROCEDURE: NM ROLAND PERF SPECT R&S PHARM Rest and pharmacological stress myocardial perfusion SPECT with gated imaging and ejection fraction RADIOPHARMACEUTICAL: 25.1 mCi Tc-99m tetrafosmin IV at rest and 24.7Regadenoson mCi Tc-99m tetrafosmin IV at peak effect of pharmacological stress. Eig-ohy-waejohpi was performed. INDICATIONS: Atherosclerotic heart disease TECHNIQUE: Radiopharmaceutical was injected at peak stress test, and also at rest. SPECT images were obtained. SPECT myocardial perfusion images were displayed in short axis, horizontal long axis, and vertical long axis views. Gated images were reviewed using [employer] software. COMPARISON: None. CARDIAC STRESS: A pharmacologic stress test was performed under the supervision of an attending staff, using an infusion of Regadenoson. Hemodynamic data: There is normal blood pressure and heart rate response to pharmacologic stress. Symptoms: The patient denied anginal chest pain. EKG: No diagnostic changes of ischemia; no ectopy. FINDINGS: Raw data: There is good myocardial uptake of radiotracer. No significant motion artifacts. Cwjr-nj-yzpmj ratio is 0.43 (normal is less than 0.38 for tetrafosmin tracer). Left ventricle function: Gated images demonstrate basal inferior and inferoseptal hypokinesis. No transient ischemic dilation; TID is 1.11 (normal less than 1.3). Left ventricle resting end diastolic volume is 109 mL. Left ventricle stress ejection fraction is 62%; normal range is above 45%. Myocardial perfusion: There is a large size, moderate intensity fixed inferior, inferoseptal and inferolateral wall defect. No reversible perfusion defects. IMPRESSION: Likely low risk study with no reversible perfusion defects. There is a large size, moderate intensity fixed inferior, inferoseptal and inferolateral wall defect however no prone images were obtained. There is note of basal inferior and inferoseptal hypokinesis in both the rest and stress gated images consistent with prior infarct. Contractility is otherwise preserved throughout the rest of the myocardium. It is likely then that the fixed defects in the mid to distal inferior, mid to distal inferoseptal and entire inferolateral noble are due attenuation artifact. Dictated by: Stefany Lockhart D.O. on 06/12/2021 at 15:32 Approved by: Stefany Lockhart D.O. on 06/12/2021 at 15:49
== END ==
PROVIDERS: PCP Family Medicine; Referring Provider Internal Medicine Cardiovascular Disease; Visit Provider Internal Medicine Cardiovascular Disease
DX: I25.10 Atherosclerotic heart disease of native coronary artery without angina pectoris (principal)
CPT/HCPCS: 78452; 93017; A9502; J2785

== ENCOUNTER 2022-05-15 08:13 | Day surgery (SDC) | payer MEDICARE, OTHER, SELFPAY ==
[2022-05-15] MEDS: FLEETS ENEMA 1 EACH PR (08:51)
[2022-05-15 09:06] VITALS: BP 125/69; PULSE 77; RESP 16; TEMP 36.5; O2SAT 99; BMI 34.2
[2022-05-15] MEDS: LACTATED RINGERS 1,000 ML 42 ML IV (09:19)
--- NOTE | 2022-05-15 09:31 | PM.HP.1 ---
History of Present Illness History of Present Illness Date Patient Seen: 05/15/22 Chief complaint: Colonoscopy Narrative: Personal history of colon polyps with last colonoscopy 10 years ago [facility] Medical History Diabetes Hyperlipidemia Hypertension Stroke Surgical History S/P total knee arthroplasty Social History household members: spouse Smoking Status: Former smoker Meds Home Medications and Allergies Home Medications Medication Instructions Recorded Confirmed Type Fluoxetine Hydrochloride 20 mg PO QDAY #0 caps 11/02/12 05/15/22 History (FLUOXETINE) atorvastatin 40 mg tablet (Lipitor) 80 mg PO HS #0 tabs 11/02/12 05/15/22 History insulin glargine 100 unit/mL 55 unit SQ HS ##0 11/02/12 05/15/22 History subcutaneous solution (Lantus U-100 Insulin) carvedilol 25 mg tablet (Coreg) 25 mg PO BID ##0 10/30/15 05/15/22 History tamsulosin 0.4 mg capsule (Flomax) 0.4 mg PO QDAY ##0 10/30/15 05/15/22 History multivitamin (Multiple Vitamins 1 tab PO QDAY #0 tabs 11/08/15 05/15/22 History tablet) aspirin 81 mg tablet,delayed 81 mg PO BID #60 tabs 11/10/15 05/15/22 Rx release empagliflozin 10 mg tablet 10 mg PO QAM 06/27/20 05/15/22 History (Jardiance) levothyroxine 50 mcg tablet 50 mcg PO DAILY 06/27/20 05/15/22 History (Synthroid) lisinopril 20 mg tablet 20 mg PO DAILY 06/27/20 05/15/22 History spironolactone 25 mg tablet 25 mg PO DAILY 06/27/20 05/15/22 History finasteride 5 mg tablet 5 mg PO 05/15/22 History Allergies Allergy/AdvReac Type Severity Reaction Status Date / Time Penicillins [PENICILLINS] Allergy Unknown HYPERSENSITIVITY Verified 06/27/20 18:40 A CHILD/UNKNOWN Exam Vital Signs (past 8 hours): - 05/15/22 09:06 Temperature 97.7 F Pulse Rate 77 Respiratory Rate 16 Blood Pressure 125/69 Pulse Oximetry 99 Oxygen Delivery Method Room Air Oxygen Delivery Method Room Air Narrative Exam Narrative: Oropharynx free of lesions Chest clear to auscultation percussion Cardiac exam reveals no S3 or murmur Assessment & Plan Assessment & Plan narrative: History of colon polyps with need for follow-up colonoscopy. Risks, benefits, alternatives have been explained.
--- NOTE | 2022-05-15 09:32 | PM.OP.COLON ---
Operative Date/Time/Diagnoses Date of procedure: 05/15/22 Pre-op diagnosis: See indication and findings Procedure & Clinicians Study performed: Colonoscopy Indications: History of colon polyps Surgeon: Gerard Escobar Procedure Notes Procedure in detail: After informed consent was obtained the patient was placed in left lateral decubitus position. The video colonoscope was introduced the rectum slowly advanced cecum. On slow withdrawal mucosa was carefully examined. The scope was removed. The patient tolerated procedure well. Blood loss none Complications none Sedation mac Findings 1. Normal colonoscopy to cecum Mr. Osorio should have follow-up colonoscopy in 7-10 years.
[2022-05-15 10:09] VITALS: BP 98/53; PULSE 80; RESP 12; TEMP 36.9; O2SAT 97
[2022-05-15 10:14] VITALS: BP 106/73; PULSE 68; RESP 12; TEMP 36.5; O2SAT 99
[2022-05-15 10:18] VITALS: BP 115/71; PULSE 67; RESP 14; TEMP 36.4; O2SAT 99
[2022-05-15 10:25] VITALS: BP 131/70; PULSE 62; RESP 14; TEMP 36.5; O2SAT 99
== END 2022-05-15 10:44 | disposition home or self-care (01) ==
PROVIDERS: PCP Family Medicine; Referring Provider Internal Medicine Gastroenterology; Visit Provider Internal Medicine Gastroenterology
PROC: 0DJD8ZZ Inspection of Lower Intestinal Tract, Via Natural or Artificial Opening Endoscopic (ICD-10-PCS; CPT 45378; principal; 2022-05-15 09:30)
DX: Z12.11 Encounter for screening for malignant neoplasm of colon (principal); Z86.010 Personal history of colon polyps
CPT/HCPCS: G0105; J2704

== ENCOUNTER → 2022-07-24 07:37 | Outpatient (CLI) | payer MEDICARE, OTHER, SELFPAY ==
--- NOTE | 2022-07-24 | DI.RAD.S_ITS ---
PROCEDURE: FL WRIST INJECTION MR/CT RT INDICATIONS: RIGHT WRIST PAIN COMPARISON: [facility] Outside Film, CR, XR WRIST 3+ VIEWS RIGHT, 05/22/2022, 11:15. TECHNIQUE: After informed consent had been obtained, the wrist was examined fluoroscopically, and a site chosen for injection of the radiocarpal compartment from a dorsal approach. Skin was prepped and draped in a sterile fashion and 1% lidocaine infiltrated from the skin down to the articular surface. A hypodermic needle was then introduced into the articular space and a modest amount of contrast medium was instilled confirming intra-articular needle tip placement. This was followed by approximately 5 mL of a dilute gadolinium solution. Needle was removed and dressing was applied. The patient experienced no complications throughout the procedure and left the fluoroscopic suite in no apparent distress. FINDINGS: A single fluoroscopic spot image demonstrates intra-articular location to injected iodinated contrast. IMPRESSION: Successful fluoroscopic-guided administration of dilute Gadolinium solution for right wrist MR arthrogram. Dictated by: Yevgeniy Hills M.D. on 07/24/2022 at 9:25 Approved by: Yevgeniy Hills M.D. on 07/24/2022 at 9:26
--- NOTE | 2022-07-24 09:02 | DI.MRI.S_ITS ---
PROCEDURE: MR WRIST RT W CON INDICATIONS: RIGHT WRIST PAIN TECHNIQUE: After the administration of 3-4 mL of dilute intra-articular Gadolinium contrast into the radiocarpal compartment, coronal T1 spin echo with fat saturation and T2 fast spin echo with fat saturation, axial T1 spin echo and T2 fast spin echo with fat saturation, sagittal T1 spin echo with and without fat saturation through the wrist. COMPARISON: None. FINDINGS: Image quality: Excellent. Bones and cartilage: Osteoarthritic changes are noted throughout wrist joints. No marrow edema. No acute fracture or dislocation. No evidence of avascular necrosis. Carpal ligaments: There is ruptured scapholunate ligament with widened scapholunate interval and gadolinium extravasation into the mid-carpal compartment. The lunotriquetral ligament is intact. The radioscaphocapitate and radiolunotriquetral ligaments appear intact. The arcuate ligament and short radiolunate ligament also appear normal. The dorsal intercarpal and radiotriquetral ligaments appear intact. On sagittal images, the pisohamate ligament appears intact. Triangular fibrocartilage complex: There is signal abnormality and contour irregularity involving triangular fibrocartilage near its radial insertion with small amount of gadolinium extravasation into the distal radioulnar joint. The adjacent meniscal homolog appears normal. The ulnar collateral ligament appears intact. The extensor carpi ulnaris tendon is normal in location and morphology. Tendons and soft tissues: The carpal tunnel structures appear normal, including the median nerve. The ulnar nerve appears normal within Guyon's canal. All six extensor tendon compartments demonstrate normal morphology, without pathologic tendon sheath fluid. No soft tissue ganglion cysts. IMPRESSION: 1. Vowq-jr-dmcaikxl wrist joint osteoarthritis. No acute fracture or dislocation. No evidence of avascular necrosis. 2. Ruptured scapholunate ligament with widened scapholunate interval. The lunotriquetral ligament is intact. 3. Suggestion of triangular fibrocartilage complex tear near its radial insertion. 4. Extensor and flexor tendons are grossly intact. Dictated by: Tommy Babcock M.D. on 07/24/2022 at 13:43 Approved by: Tommy Babcock M.D. on 07/24/2022 at 15:15
== END ==
PROVIDERS: PCP Family Medicine; Referring Provider Orthopaedic Surgery; Visit Provider Orthopaedic Surgery
DX: S63.391A Traumatic rupture of other ligament of right wrist, initial encounter (principal); S63.8X1A Sprain of other part of right wrist and hand, initial encounter; M19.031 Primary osteoarthritis, right wrist; X58.XXXA Exposure to other specified factors, initial encounter
CPT/HCPCS: 20605; 73222; 77002

== ENCOUNTER 2022-11-28 08:23 | Day surgery (SDC) | payer MEDICARE, OTHER, SELFPAY ==
[2022-11-26 15:00] VITALS: BMI 38.0
[2022-11-28] VITALS (8 sets, daily range): BP systolic 102–118; BP diastolic 46–62; PULSE 58–66; RESP 10–16; TEMP 36.3–36.8; O2SAT 94–99; BMI 38.0
--- NOTE | 2022-11-28 09:22 | PM.HP.1 ---
History of Present Illness History of Present Illness Date Patient Seen: 11/28/22 Time Patient Seen: 09:22 Chief complaint: Right Wrist Ligament Repair/Reconstruction Narrative: 71-year-old gentleman with right wrist pain that has been unresponsive to conservative treatment. Patient had an MRI showing full-thickness tearing of his scapholunate ligament as well as some early arthritic changes to the radiocarpal joint. [facility] Medical History CAD (coronary artery disease) Hyperlipidemia Stroke (2003) Diabetes Hypertension Surgical History H/O arthroscopy of right knee History of carpal tunnel release History of surgical removal of ganglion cyst History of total right hip replacement Hx of heart artery stent (12/2013) S/P total knee arthroplasty Social History household members: spouse Smoking Status: Former smoker alcohol intake: current Meds Home Medications and Allergies Home Medications Medication Instructions Recorded Confirmed Type atorvastatin 40 mg tablet (Lipitor) 80 mg PO HS #0 tabs 11/02/12 11/28/22 History fluoxetine 40 mg capsule 40 mg PO DAILY #0 caps 11/02/12 11/27/22 History insulin glargine 100 unit/mL 15 unit SQ QAM ##0 11/02/12 11/27/22 History subcutaneous solution (Lantus U-100 Insulin) carvedilol 25 mg tablet (Coreg) 12.5 mg PO BID ##0 10/30/15 11/28/22 History tamsulosin 0.4 mg capsule (Flomax) 0.4 mg PO BID ##0 10/30/15 11/28/22 History multivitamin (Multiple Vitamins 1 tab PO QDAY #0 tabs 11/08/15 11/27/22 History tablet) empagliflozin 10 mg tablet 25 mg PO QAM 06/27/20 11/28/22 History (Jardiance) levothyroxine 50 mcg tablet 50 mcg PO DAILY 06/27/20 11/28/22 History (Synthroid) lisinopril 20 mg tablet 10 mg PO DAILY 06/27/20 11/27/22 History spironolactone 25 mg tablet 25 mg PO QPM 06/27/20 11/28/22 History finasteride 5 mg tablet 5 mg PO DAILY 05/15/22 11/27/22 History aspirin 81 mg tablet,delayed 81 mg PO DAILY 11/27/22 11/28/22 History release dulaglutide 3 mg/0.5 mL 3 mg SUBCUT QWEEK 11/27/22 11/28/22 History subcutaneous pen injector (Trulicity) ezetimibe 10 mg tablet 10 mg PO DAILY 11/27/22 11/28/22 History melatonin 10 mg tablet 10 mg PO BEDTIME 11/27/22 11/28/22 History Allergies Allergy/AdvReac Type Severity Reaction Status Date / Time Penicillins [PENICILLINS] Allergy Unknown HYPERSENSITIVITY Verified 11/28/22 09:01 A CHILD/UNKNOWN Exam Narrative Exam Narrative: Some swelling to the dorsal aspect of the wrist. Full range of motion of the fingers but decreased range of motion of the radiocarpal joint with only about 50? of flexion and extension. Pain with both active and passive range of motion. Positive Galvez click test. Negative ballottement test. Ulnar, median, and radial nerve are intact to both motor and sensory function. DRUJ stable to stress. Assessment & Plan Assessment & Plan narrative: Patient with a scapholunate rupture and some signs of early stage traumatic arthritis. Went over treatment options with the patient today both operative versus non operative. Patient is consented for a scapholunate ligament reconstruction with possible radial styloidectomy. All of his questions and concerns were answered to his full satisfaction. The risk, benefits, alternatives, possible complications, operative course, and postop outcomes were discussed. Complications including but not limiting to bleeding, infection, fracture, nerve injury, continued pain postoperatively or instability postoperatively were discussed in detail. Medical complications including but not limited to deep venous thrombosis event, anesthesia complications with excessive bleeding, vascular events or cardiac events and other possible complications were discussed in detail. Need for postoperative rehabilitation and anticipated hospital stay and clinical course were discussed in detail. Patient acknowledges understanding and elects to proceed with surgery.
--- NOTE | 2022-11-28 09:24 | PM.PREOP ---
Pre-operative Note Interval Note History & Physical reviewed/Exam performed by Physician: Yes Changes to H&P: No
[2022-11-28] MEDS: ACETAMINOPHEN 325 MG TABLET 975 MG PO (09:31)
[2022-11-28] MEDS: LACTATED RINGERS 1,000 ML 42 ML IV (09:32)
--- NOTE | 2022-11-28 09:49 | SUR.OPER ---
Supine on padded OR bed, head on pillow, operative arm on arm table draped to field, non operative arm secured on padded arm board at <90 degrees abduction, legs uncrossed, safety belt at thigh, tape over blanket over lower legs.
[2022-11-28] MEDS: CEFAZOLIN 2 GM/100 ML PREMIX 100 ML IV (10:00)
--- NOTE | 2022-11-28 10:09 | PM.HP.1 ---
History of Present Illness History of Present Illness Chief complaint: Right Wrist Ligament Repair/Reconstruction [facility] Medical History CAD (coronary artery disease) Hyperlipidemia Stroke (2003) Diabetes Hypertension Surgical History H/O arthroscopy of right knee History of carpal tunnel release History of surgical removal of ganglion cyst History of total right hip replacement Hx of heart artery stent (12/2013) S/P total knee arthroplasty Social History household members: spouse Smoking Status: Former smoker alcohol intake: current Meds Home Medications and Allergies Home Medications Medication Instructions Recorded Confirmed Type atorvastatin 40 mg tablet (Lipitor) 80 mg PO HS #0 tabs 11/02/12 11/28/22 History fluoxetine 40 mg capsule 40 mg PO DAILY #0 caps 11/02/12 11/27/22 History insulin glargine 100 unit/mL 15 unit SQ QAM ##0 11/02/12 11/27/22 History subcutaneous solution (Lantus U-100 Insulin) carvedilol 25 mg tablet (Coreg) 12.5 mg PO BID ##0 10/30/15 11/28/22 History tamsulosin 0.4 mg capsule (Flomax) 0.4 mg PO BID ##0 10/30/15 11/28/22 History multivitamin (Multiple Vitamins 1 tab PO QDAY #0 tabs 11/08/15 11/27/22 History tablet) empagliflozin 10 mg tablet 25 mg PO QAM 06/27/20 11/28/22 History (Jardiance) levothyroxine 50 mcg tablet 50 mcg PO DAILY 06/27/20 11/28/22 History (Synthroid) lisinopril 20 mg tablet 10 mg PO DAILY 06/27/20 11/27/22 History spironolactone 25 mg tablet 25 mg PO QPM 06/27/20 11/28/22 History finasteride 5 mg tablet 5 mg PO DAILY 05/15/22 11/27/22 History aspirin 81 mg tablet,delayed 81 mg PO DAILY 11/27/22 11/28/22 History release dulaglutide 3 mg/0.5 mL 3 mg SUBCUT QWEEK 11/27/22 11/28/22 History subcutaneous pen injector (Trulicity) ezetimibe 10 mg tablet 10 mg PO DAILY 11/27/22 11/28/22 History melatonin 10 mg tablet 10 mg PO BEDTIME 11/27/22 11/28/22 History hydroxyzine pamoate 25 mg capsule 25 mg PO TID-QID PRN spasms #60 11/28/22 Rx (Vistaril) caps oxycodone-acetaminophen 5 mg-325 2 tab PO Q4-6H PRN pain #60 tabs 11/28/22 Rx mg tablet (Percocet) Allergies Allergy/AdvReac Type Severity Reaction Status Date / Time Penicillins [PENICILLINS] Allergy Unknown HYPERSENSITIVITY Verified 11/28/22 09:01 A CHILD/UNKNOWN Exam Vital Signs (past 8 hours): - 11/28/22 09:07 Temperature 98.2 F Pulse Rate 66 Respiratory Rate 16 Blood Pressure 118/62 Pulse Oximetry 98 Oxygen Delivery Method Room Air Oxygen Delivery Method Room Air
[2022-11-28] MEDS: BUPIVACAINE 0.5% (PF) 30 ML, EPINEPHrine 0.15 MG INJ (10:41)
--- NOTE | 2022-11-28 11:20 | PM.OP.1 ---
Operative Date/Time/Diagnoses Date of procedure: 11/28/22 Time of procedure: 10:00 Pre-op diagnosis: Right scapholunate ligament rupture Post-op diagnosis: same Procedure & Clinicians Procedure: Right scapholunate ligament reconstruction using tendon graft Same procedure as scheduled: Yes Surgeon: Rajesh Faria Click Yes if Unassisted: Yes Anesthesia Type: General Operative Notes Findings: Complete rupture of the scapholunate ligament. No sign of any carpal collapse. DISI deformity noted as well but not a fixed deformity it was easily correctable. Some early stage arthritic changes at the radiocarpal joint. Closure Type: primary Applied: implant(s) (Three Arthrex swivel locks, 1 K-wire) Estimated Blood Loss (mL): 5 Tourniquet time (min): 52 Procedure in detail: On date of service, patient was met in the holding area where his operative site was signed and witnessed by the OR staff. The surgery is once again discussed with the patient in remaining questions or concerns he had were answered fully. Patient was taken back to the operating theater and placed on the operating table in a supine position. Great care was taken to ensure that all bony prominences were appropriately padded. A well-padded tourniquet was placed up along the upper extremity. Time-out was performed verifying patient's name, procedure, and operative site. The limb was prepped and draped in the normal sterile fashion. An Esmarch was used to exsanguinate the limb the tourniquet was turned up to 250 mm of mercury. Longitudinal incision was made. The incision was ulnar to the Chandan's tubercle. It was centered over the radiocarpal joint. Fifteen blade was used to incise through skin and fascial tissue. Sharp dissection was continued with a 15 blade until the extensor mechanism was identified. Branches of the superficial radial nerve were identified and protected as well as branches coming off ulnarly. Once we had the extensor mechanism identified and was split allowing a release of the EPL tendon. This was also done ulnarly opening up 4th extensor compartment and then done radially opening up the 2nd extensor compartment. This allowed us to retract the extensor tendons. We next took a small strip of tendon tissue from the ECRB be which was then whip stitched and then set aside to be used later. Next, the radiocarpal joint was opened preserving the carpal ligaments. This gave us good visualization of the scapholunate interval. There was a complete rupture to the scapholunate ligament. Early signs of radiocarpal arthritic process. K-wire was placed in to the scaphoid and 1 into the lunate and the scapholunate interval was reduced. There was quite a bit of flexion of the scaphoid which was reduced as well as extension of the lunate. These 2 K-wires were then held together to close down any diastasis. Another K-wire was placed between the scaphoid and the capitate to keep it from falling back into flexion. Next, 3 guidewires were placed 1 in the lunate and 2 in the scaphoid 1 by the scapholunate interval and then 1 very distally. C-arm used to verify reduction of the scapholunate interval as well as guidewire positioning. Once we were satisfied with the positioning cannulated drill was used to drill over the 3 guidewires. The bony hole tunnels were then copiously irrigated removing any remaining tissue. We then turned our attention back to our tendon graft. This plus suture tape was tenodesed into the 1st hole in the scaphoid. Then under tension this was then placed into the 2nd hole into the lunate going across the scapholunate interval 18 OD seen the attendant as well as the graft providing a solid repair of the scapholunate interval. Next, the tendon and suture material were then brought up to the distal hole into the scaphoid and retain noticed there to once again help keep the scaphoid from falling into flexion. C-arm was brought in to verify maintenance of reduction. The 2 reducing K-wires were removed and there was no gapping at the scapholunate interval once those K-wires were removed. We were able to flex and extend the wrist with no abnormal motion of the scapholunate interval been no sign of any diastasis. Good signs of a solid repair of the scapholunate interval. The wound was then copiously irrigated. The capsule was closed and repaired using 3-0 FiberWire. The extensor mechanism was closed with Vicryl recreating the 4th extensor compartment as well as the 3rd and 2nd extensor compartments. The rest of the wound was closed in layered fashion. Patient's hand and arm was cleaned dried and dressed. Patient was placed into a splint and taken to the PACU in stable condition. Complications: none Post-operative Condition: stable Disposition: PACU Plan for aftercare: Patient will be immobilized for a total of 6 weeks. No restrictions to range of motion of the fingers. No lifting more than 2-3 lb.
== END 2022-11-28 12:10 | disposition home or self-care (01) ==
PROVIDERS: PCP Family Medicine; Referring Provider Orthopaedic Surgery; Visit Provider Orthopaedic Surgery
PROC: (CPT 25320; principal; 2022-11-28 09:45)
DX: S63.8X1A Sprain of other part of right wrist and hand, initial encounter (principal); I10 Essential (primary) hypertension; E11.9 Type 2 diabetes mellitus without complications; I25.10 Atherosclerotic heart disease of native coronary artery without angina pectoris; E78.5 Hyperlipidemia, unspecified; Z86.73 Personal history of transient ischemic attack (TIA), and cerebral infarction without residual deficits
CPT/HCPCS: 25320; J0171; J0690; J2405; J3010

== ENCOUNTER → 2023-08-29 19:21 | Outpatient (CLI) | payer MEDICARE, OTHER, SELFPAY ==
--- NOTE | 2023-08-29 19:22 | DI.MRI.S_ITS ---
PROCEDURE: MR LUMBAR SPINE WO CON INDICATIONS: RADICULOPATHY, LUMBAR REGION TECHNIQUE: Noncontrast sagittal T1 spin echo and T2 fast echo, sagittal STIR, and T2 fast spin echo through the lumbar spine. In cases with scoliosis, additional coronal T2 fast spin echo may be performed. COMPARISON: [facility], MR, L-SPINE WITHOUT CONTRAST, 06/06/2015, 15:02. FINDINGS: Image quality: Excellent. Alignment and Curvature: There is normal bony alignment. Bone Marrow: Marrow is of normal overall signal. No acute vertebral body compression fractures. 2.1 cm hemangioma in L1. Spinal Cord: Conus medullaris terminates at the L1 level. Visualized cord demonstrates normal signal and size. Paraspinous Soft Tissues: No paravertebral masses. T12-L1: Normal appearance. L1-L2: Normal appearance. L2-L3: Broad-based disc bulge. Small facet effusions. Mild ligamentum flavum hypertrophy. No significant spinal canal or neural foraminal narrowing. L3-L4: Broad-based disc bulge, mild ligamentum flavum hypertrophy. Mild bilateral neural foraminal narrowing. L4-L5: Broad-based disc bulge, mild facet hypertrophy and left-sided facet arthrosis. [id number] bilateral neural foraminal narrowing. L5-S1: Broad-based disc bulge, bilateral facet hypertrophy, [id number] bilateral neural foraminal narrowing. IMPRESSION: Mild interval progression of degenerative disc disease, with increased bilateral neural foraminal narrowing at L4-5 and L5-S1 compared with prior. No significant spinal canal narrowing. Dictated by: Ryan Schulte M.D. on 09/01/2023 at 9:48 Approved by: Ryan Schulte M.D. on 09/01/2023 at 9:52
== END ==
PROVIDERS: PCP Family Medicine; Referring Provider Family Medicine; Visit Provider Family Medicine
DX: M51.16 Intervertebral disc disorders with radiculopathy, lumbar region (principal); M51.17 Intervertebral disc disorders with radiculopathy, lumbosacral region; M48.061 Spinal stenosis, lumbar region without neurogenic claudication; M48.07 Spinal stenosis, lumbosacral region
CPT/HCPCS: 72148